=== PATIENT | male | born 1950 | race Caucasian/White ===

== ENCOUNTER 2017-05-30 12:05 | Observation (INO) ==
[2017-05-30] MEDS ORDERED: ASPIRIN 81 MG CHEWABLE TABLET PO ONE (12:15)
[2017-05-30] MEDS ORDERED: DiltiaZEM 25 MG/5 ML INJECTION IVP ONE ×2 (12:17→12:50)
[2017-05-30] MEDS: SALINE FLUSH 10ml SYRINGE IVF PRN ×3 (12:26→22:01)
--- NOTE | 2017-05-30 12:30 | Emergency Department Report ---
Chest Pain HPI - General Chief Complaint: Arrhythmia/Palpitations <SeptemberRich 05/30/17 14:02> Stated Complaint: Dizzy CP <SeptemberRich 05/30/17 14:02> Time Seen by Provider: 05/30/17 12:13 <SeptemberRich 05/30/17 14:02> Source: patient <Letty Escobar 05/30/17 12:31> Mode of arrival: EMS <Letty Escobar 05/30/17 12:31> Limitations: no limitations <Laisha Escobaran Jasson Morris 05/30/17 12:31> - History of Present Illness HPI narrative: Pt presents to ER per EMS after he became dizzy while cooking and fell. Pt got up to chair and became dizzy again while at rest and called 911. Pt denies a history of cardiac or neuro problems. As pt sits on cot he feels like the room is spinning. Pt denies nausea, vomiting, diaphoresis, SOA, or any sensation of palpitations. Pt has had normal po intake and adequate rest. <Letty Escobar 05/30/17 12:31> MD complaint: other <ShawnLettymanuel Morris 05/30/17 12:31> Occurred At: home <Letty Escobar 05/30/17 12:31> Onset (ago): minute(s) <Letty Escobar 05/30/17 12:31> Duration: intermittent <Letty Escobar 05/30/17 12:31> Pain radiation: none <Letty Escobar 05/30/17 12:31> Exacerbating factors: nothing <Letty Escobar 05/30/17 12:31> - Related Data Home Medications Medication Instructions Recorded Confirmed Albuterol HFA Inhaler [Ventolin 1 puff INH PRN 01/06/17 05/30/17 Hfa 90 mcg/actuation] Ibuprofen 2 cap PO Q4H PRN 01/06/17 05/30/17 Multivitamin [One Daily 1 each PO DAILY 01/06/17 05/30/17 Multivitamin] raNITIdine HCl [Zantac] 150 mg PO PRN 01/06/17 05/30/17 Fexofenadine [Mariza] 180 mg PO PRN 05/30/17 05/30/17 <05/30/17 14:02> Allergies Allergy/AdvReac Type Severity Reaction Status Date / Time No Known Allergies Allergy Verified 05/30/17 12:18 <05/30/17 14:02> Review of Systems All systems: reviewed and negative except as stated <Letty Escobar 12:31> Constitutional: Reports: as per HPI <Letty Escobar 05/30/17 12:31> Cardiovascular: Reports: as per HPI <Letty Escobar 05/30/17 12:31> Respiratory: Reports: as per HPI <Letty Escobar 05/30/17 12:31> Gastrointestinal: Reports: as per HPI <Letty Escobar 05/30/17 12:31> Neurological: Reports: as per HPI <Letty Escobar 05/30/17 12:31> [facility] Patient Stated Medical History Cerebrovascular Accident No Paralysis No Seizures No Syncope No Angina No Cardiac Arrhythmia No Congestive Heart Failure No Coronary Artery Disease No Heart Murmur No Hypertension No Hypotension No Myocardial Infarction No Rheumatic Fever No Valvular Heart Disease No Other Cardiology No Asthma Yes Bronchitis No Chronic Obstructive Pulmonary No Disease (COPD) Pneumonia No Pulmonary Edema No Pulmonary Embolism No Sleep Apnea No Tuberculosis No Other Respiratory No Diabetes Mellitus Type 1 No Diabetes Mellitus Type 2 No Cirrhosis No Gastroesophageal Reflux Yes Disease Gastrointestinal Bleeding No Hepatitis No Hiatal Hernia No Obstructive Bowel No Ulcer No Other GI No Osteoarthritis No Other Musculoskeletal No Anesthesia Reactions No Blood Transfusions No Chemotherapy No Malignant Hyperthermia No Other No Depression No Now No <05/30/17 14:02> - Social History Smoking status: Current every day smoker <Letty Escobar 05/30/17 12:31> Does patient use chewing tobacco?: No <Letty Escobar 05/30/17 12:31> Physical Exam - Limitations Limitations: no limitations <Letty Escobar 05/30/17 12:31> - General General appearance: alert, in no apparent distress <Letty Escobar 05/30 12:31> - Normal Exams: Head:: Normocephalic without trauma <Letty Escobar 05/30/17 12:31> Eyes:: Pupils are PERRLA w/ EOMI <Letty Escobar 05/30/17 12:31> Fundi:: Disks flat and sharp <Letty Escobar 05/30/17 12:31> Neck:: Full range of motion, without adenopathy <Letty Escobar 12:31> Chest/Respirations:: Clear all sepulveda, with good airflow, and symmetry bilaterally <Letty Escobar 05/30/17 12:31> Cardiovascular:: Regular rate and rhythm, without murmur or gallop, Pulses 2+ all extremities, capillary refill, <2 seconds all extremities <Letty Escobar 05/30/17 12:31> Abdomen:: Bowel sounds positive, soft, non-tender, non-distended <Letty Escobar 05/30/17 12:31> Musculoskeletal:: No tenderness, or deformity noted, good range of motion, all extremities <Letty Escobar 05/30/17 12:31> Integumentary:: No rashes <Letty Escobar 05/30/17 12:31> Neurological:: Patient is alert, and oriented, cranial nerves, motor/sensory/ cerebellar, exams w/o gross deficits, to observation <Letty Escobar 12:31> Psychiatric:: Patient exhibits, appropriate attention, emotion and affect < Letty Escobar 05/30/17 12:31> Course Vital Signs Temperature 98.5 F 05/30/17 12:07 Pulse Rate 154 H 05/30/17 12:07 Respiratory Rate 20 05/30/17 12:07 Blood Pressure 125/92 H 05/30/17 12:07 Pulse Oximetry 98 05/30/17 12:07 Temperature 98.5 F 05/30/17 12:07 Pulse Rate 128 H 05/30/17 13:00 Respiratory Rate 17 05/30/17 13:00 Blood Pressure 125/75 05/30/17 13:00 Pulse Oximetry 95 05/30/17 12:57 <Letty Escobar 05/30/17 13:22> Vital Signs Temperature 98.5 F 05/30/17 12:07 Pulse Rate 154 H 05/30/17 12:07 Respiratory Rate 20 05/30/17 12:07 Blood Pressure 125/92 H 05/30/17 12:07 Pulse Oximetry 98 05/30/17 12:07 Temperature 98.5 F 05/30/17 12:07 Pulse Rate 128 H 05/30/17 13:00 Respiratory Rate 17 05/30/17 13:00 Blood Pressure 125/75 05/30/17 13:00 Pulse Oximetry 95 05/30/17 12:57 <[facility] 13:12> Chest Pain - MDM Narrative Medical decision making narrative: Lab, X ray, and EKG reviewed. Pt given Cardizem bolus X2 with reduction of rate after first bolus and conversion to SR with second bolus. Dr Morales notified of pt status and history. Dr Ghosh would like pt to receive 150 mg of Amiodarone IV followed by 400 mg PO and for pt to be admitted to the floor. Findings and treatment plan discussed with pt who verbalizes understanding. Multiple questions answered. <Letty Escobar 05/30/17 13:28> - Differential Diagnosis Likely: stable angina, atypical chest pain (A fib, arrythmia) <Letty Escobar 05/30/17 12:31> - Lab Data Attestation: I reviewed the patient's lab results. <Letty Escobar 05/30 13:28> Result diagrams: 05/30/17 12:24 05/30/17 12:24 <[facility] 05/30/17 14:02> Lab Results 05/30/17 05/30/17 05/30/17 Range/Units 12:24 12:24 12:24 WBC 10.1 (4.5-11.0) T/MM3 RBC 4.72 (4.50-5.90) M/MM3 Hgb 15.1 (13.5-17.5) GM/DL Hct 45.7 (41-53) % MCV 96.8 (80-100) UM3 MCH 32.0 (26-34) UUG MCHC 33.0 (31-37) GM/DL RDW Std Deviation 46.4 (36.9-50.2) FL Plt Count 285 (130-400) T/MM3 MPV 8.5 L (9.4-12.4) UM3 Immature Gran % (Auto) 0.2 (0.0-0.5) % Neut % (Auto) 67.9 H (33-66) % Lymph % (Auto) 21.0 L (23-45) % [place] % (Auto) 7.3 (0-9.0) % Eos % (Auto) 3.4 (0-4) % Baso % (Auto) 0.2 (0-2) % Neut # (Auto) 6.9 (1.8-7.7) T/MM3 Lymph # (Auto) 2.1 (1-4.8) T/MM3 [place] # (Auto) 0.7 (0-0.8) T/MM3 Eos # (Auto) 0.3 (0-0.5) T/MM3 Baso # (Auto) 0.0 (0-0.2) T/MM3 Abs Immat Gran (auto) 0.02 (0.00-0.03) T/MM3 Turbidity < 20 (0-20) Sodium 143 (134-144) MEQ/L Potassium 3.8 (3.6-5) MEQ/L Chloride 107 (98-107) MEQ/L Carbon Dioxide 23 (22-30) MEQ/L Anion Gap 13 (5-15) MEQ/L BUN 15.0 (9-20) MG/DL Creatinine 0.7 L (0.8-1.5) MG/DL GFR Calculation 113 BUN/Creatinine Ratio 21 (6-26) RATIO Glucose 114 H (75-110) MG/DL Calculated Osmolality 277 (261-280) MOSM/KG Calcium 9.3 (8.4-10.2) MG/DL Magnesium 2.2 (1.6-2.3) MG/DL Icterus Index < 2 (0-7) Troponin I < 0.012 (0-0.12) ng/ml B-Natriuretic Peptide 266 H (0-175) pg/mL TSH 2.18 (0.47-4.68) MIU/L Specimen Hemolysis < 15 (0-25) <Letty Escobar 05/30/17 13:22> Lab Results 05/30/17 05/30/17 05/30/17 Range/Units 12:24 12:24 12:24 WBC 10.1 (4.5-11.0) T/MM3 RBC 4.72 (4.50-5.90) M/MM3 Hgb 15.1 (13.5-17.5) GM/DL Hct 45.7 (41-53) % MCV 96.8 (80-100) UM3 MCH 32.0 (26-34) UUG MCHC 33.0 (31-37) GM/DL RDW Std Deviation 46.4 (36.9-50.2) FL Plt Count 285 (130-400) T/MM3 MPV 8.5 L (9.4-12.4) UM3 Immature Gran % (Auto) 0.2 (0.0-0.5) % Neut % (Auto) 67.9 H (33-66) % Lymph % (Auto) 21.0 L (23-45) % [place] % (Auto) 7.3 (0-9.0) % Eos % (Auto) 3.4 (0-4) % Baso % (Auto) 0.2 (0-2) % Neut # (Auto) 6.9 (1.8-7.7) T/MM3 Lymph # (Auto) 2.1 (1-4.8) T/MM3 [place] # (Auto) 0.7 (0-0.8) T/MM3 Eos # (Auto) 0.3 (0-0.5) T/MM3 Baso # (Auto) 0.0 (0-0.2) T/MM3 Abs Immat Gran (auto) 0.02 (0.00-0.03) T/MM3 Turbidity < 20 (0-20) Sodium 143 (134-144) MEQ/L Potassium 3.8 (3.6-5) MEQ/L Chloride 107 (98-107) MEQ/L Carbon Dioxide 23 (22-30) MEQ/L Anion Gap 13 (5-15) MEQ/L BUN 15.0 (9-20) MG/DL Creatinine 0.7 L (0.8-1.5) MG/DL GFR Calculation 113 BUN/Creatinine Ratio 21 (6-26) RATIO Glucose 114 H (75-110) MG/DL Calculated Osmolality 277 (261-280) MOSM/KG Calcium 9.3 (8.4-10.2) MG/DL Magnesium 2.2 (1.6-2.3) MG/DL Icterus Index < 2 (0-7) Troponin I < 0.012 (0-0.12) ng/ml B-Natriuretic Peptide 266 H (0-175) pg/mL TSH 2.18 (0.47-4.68) MIU/L Specimen Hemolysis < 15 (0-25) <05/30/17 13:12> - Radiology Data Attestation: I reviewed the patient's radiology results. (read per Dr Chapman with no acute findings) <Letty Escobar 05/30/17 13:28> - EKG Data EKG #1 EKG attestation: Yes: I reviewed and interpreted this EKG. <Letty Escobar 05/30/17 13:28> Yes: I reviewed and interpreted this EKG. <05/30 13:12> Rate: tachycardia <05/30/17 13:12> Rhythm: A.Fib <05/30/17 13:12> [place]/QRS: left axis deviation, RBBB <05/30/17 13:12> EKG #2 EKG attestation: Yes: I reviewed and interpreted this EKG. < 14:02> EKG shows normal: sinus rhythm, ST-T waves <05/30/17 14:02> Rate: normal <05/30/17 14:02> [place]/QRS: left axis deviation, RBBB <05/30/17 14:02> Disposition Clinical Impression: Atrial fibrillation with RVR <05/30/17 14:02> Disposition: [address] [facility] Acute Care <05/30/17 14:02> Condition: Improved <05/30/17 14:02> Instructions: <05/30/17 14:02> Prescriptions: No Action raNITIdine HCl [Zantac] 150 mg PO PRN Albuterol HFA Inhaler [Ventolin Hfa 90 mcg/actuation] 1 puff INH PRN Multivitamin [One Daily Multivitamin] 1 each PO DAILY Ibuprofen 2 cap PO Q4H PRN PRN Reason: Pain Fexofenadine [Mariza] 180 mg PO PRN <[facility] 05/30/17 14:02> Referrals: Lv Silva DO [Physician] - <[facility] 05/30/17 14:02> Forms: <[facility]/30/[facility] 14:02> Time of Disposition: 13:27 <Letty Escobar 05/30/17 13:28> - Seen By: midlevel <Letty Escobar 05/30/17 13:28>
[2017-05-30] MEDS ORDERED: AMIODARONE 150mg/3ml INJECTION IV ONE (13:19)
[2017-05-30] MEDS ORDERED: AMIODARONE 200 MG TABLET PO ONE (13:28)
[2017-05-30] MEDS ORDERED: AMIODARONE 150 MG in NS 100 ML IV ONE (13:45)
[2017-05-30] MEDS ORDERED: SALINE FLUSH 10ml SYRINGE IV PRN (15:04)
[2017-05-30 15:12] VITALS: BMI 26.7
[2017-05-30 15:20] VITALS: RESP 16
[2017-05-30] MEDS ORDERED: IBUPROFEN 200 MG TABLET PO PRN (15:24)
[2017-05-30] MEDS ORDERED: FEXOFENADINE 180 MG TABLET PO PRN (15:30)
[2017-05-30] MEDS ORDERED: ALBUTEROL 2.5mg/3ml (0.083%) NEB AEROSOL PRN (15:30)
[2017-05-30] MEDS ORDERED: RANITIDINE 150 MG TABLET PO PRN (15:30)
--- NOTE | 2017-05-30 16:08 | Cardiology History & Physical ---
History of Present Illness Chief complaint: palpitations HPI: Huseyin is a 67 year old male who formerly saw Dr. Silva with no known medical history other than GERD who presented to ED per EMS after he became dizzy while cooking breakfast about 0900 and fell. He got up to chair and became dizzy again while at rest and called 911. He denies a history of cardiac or neuro problems. He reportedly had the sensation of like the room is spinning as well in the ED. He denies nausea, vomiting, diaphoresis, SOA, or any sensation of palpitations. He has had normal po intake and adequate rest. He is examined in his room on the Surgical unit. He reports a stress test many years ago that he thinks he passed and cannot recall why it was done. He denies ever having chest pain, pressure, tightness, palpitations, skipping or racing heart beat. He reports smoking 4-5 cigarettes a day and consuming 4-5 3.2% beer daily. Review of Systems - Constitutional Constitutional: Absent: chills, fatigue, fever(s) - EENMT Eyes: Absent: change in vision Balance: Absent: vertigo Mouth/Throat: Absent: sore throat - Cardiovascular Cardiovascular: Present: palpitations, syncope (near). Absent: chest pain, dyspnea on exertion, orthopnea, edema, heart murmur Rhythm: Absent: abnormal rhythm Vascular: Absent: pedal edema - Respiratory Respiratory: Absent: cough, dyspnea, dyspnea on exertion - Gastrointestinal Gastrointestinal: Absent: abdominal pain, diarrhea, nausea, vomiting - Genitourinary Genitourinary: Absent: dysuria - Integumentary/Breasts Integumentary: Absent: rash - Neurological Neurological: Absent: dizziness - Endocrine Endocrine: Present: palpitations PFSH Patient Stated Medical History Asthma Yes Gastroesophageal Reflux Yes Disease Surgical History: Appendectomy. Vasectomy. Umbilical hernia Family History: Father - , Parkinson's dosease Mother - brain aneurysm Brother - , liver cancer sister - no known health problems No significant FH of CAD, HTN, CHF, CVA - Social History Smoking status: Current every day smoker Packs per day: 0.25 Time spent discussing smoking cessation with patient: 3 to 10 minutes Substance use type: does not use Alcohol intake frequency: 3 or more drinks per day (3.2% beer) Housing: house Household members: none Current occupational status: employed Current residence: Apartment/Private Home Medications Home Medications Medication Instructions Recorded Confirmed Type Albuterol HFA Inhaler [Ventolin 1 puff INH PRN 01/06/17 05/30/17 History Hfa 90 mcg/actuation] Ibuprofen 2 cap PO Q4H PRN 01/06/17 05/30/17 History Multivitamin [One Daily 1 each PO DAILY 01/06/17 05/30/17 History Multivitamin] raNITIdine HCl [Zantac] 150 mg PO PRN 01/06/17 05/30/17 History Fexofenadine [Mariza] 180 mg PO PRN 05/30/17 05/30/17 History Allergies Allergy/AdvReac Type Severity Reaction Status Date / Time Penicillins Allergy Verified 05/30/17 14:07 Exam Vital signs: Temperature 98.9 F 05/30/17 15:19 Pulse Rate 75 05/30/17 15:28 Respiratory Rate 16 05/30/17 15:19 Blood Pressure 136/77 05/30/17 15:19 Pulse Oximetry 94 05/30/17 15:19 - Constitutional no acute distress, well nourished, cooperative - Routine HEENT Exam Head: Present: normocephalic ENT: Present: mucous membranes moist - Routine Neck Exam Absent: JVD, carotid bruit - Routine Chest/Breast/Axilla Exam Chest wall: Absent: tenderness - Routine Respiratory Exam Present: CTA bilaterally. Absent: rales, wheezes - Routine Cardiovascular Exam Present: irregular rhythm - Routine Abdominal Exam Present: soft, normoactive bowel sounds - Routine Extremities Exam Present: no edema - Routine Skin Exam Present: intact, dry, warm - Routine Neurological Exam Present: alert, oriented X3 - Routine Psychiatric Exam Present: normal affect, normal thought process Results 05/31/17 06:55 05/31/17 06:55 Intake and Output 05/30/17 05/30/17 05/30/17 06:59 14:59 22:59 Intake Total 0 / 0 Balance 0 / 0 Intake: Oral 0 / 0 Other: Weight 197 lb 5.019 oz Patient Weight 05/31/17 06:59 Weight 197 lb 5.019 oz Laboratory Results - last 24 hr 05/30/17 05/30/17 05/30/17 12:24 12:24 12:24 WBC 10.1 RBC 4.72 Hgb 15.1 Hct 45.7 MCV 96.8 MCH 32.0 MCHC 33.0 RDW Std Deviation 46.4 Plt Count 285 MPV 8.5 L Immature Gran % (Auto) 0.2 Neut % (Auto) 67.9 H Lymph % (Auto) 21.0 L [place] % (Auto) 7.3 Eos % (Auto) 3.4 Baso % (Auto) 0.2 Neut # (Auto) 6.9 Lymph # (Auto) 2.1 [place] # (Auto) 0.7 Eos # (Auto) 0.3 Baso # (Auto) 0.0 Abs Immat Gran (auto) 0.02 Turbidity < 20 Sodium 143 Potassium 3.8 Chloride 107 Carbon Dioxide 23 Anion Gap 13 BUN 15.0 Creatinine 0.7 L GFR Calculation 113 BUN/Creatinine Ratio 21 Glucose 114 H Calculated Osmolality 277 Calcium 9.3 Magnesium 2.2 Icterus Index < 2 Troponin I < 0.012 B-Natriuretic Peptide 266 H TSH 2.18 Specimen Hemolysis < 15 Hospital Course This is a general summary of the patient's hospital course. For more details refer to the complete medical record. Assessment and Plan - Attestation Attestation Narrative: 06/02/17 11:44 Recommendation After examining the patient I agree with the above assessment. I am involved in the formulation of the patient's plan of care. - Assessment and Plan (1) Atrial fibrillation with RVR Status: Acute Rate controlled with Cardizem IV - Cardizem 30mg po QID - Amiodarone bolus and 400mg po given for antiarrhythmic therapy - Mag and TSH WNL - Cardiac telemetry - Echocardiogram in the am - EKG tomorrow (2) GERD (gastroesophageal reflux disease) Status: Chronic May have home Zantac if needed
[2017-05-30] MEDS: ENOXAPARIN 100 MG/ML INJECTION SQ SCH (21:59)
--- NOTE | 2017-05-30 22:41 | XRay Report ---
INDICATION: new onset a fib PROCEDURE: CHEST 2-VIEWS UPRIGHT (PA & LAT) Encounter: Initial COMPARISON: April 11, 2015 FINDINGS: The lungs are clear without evidence of focal abnormal airspace opacity. There is no pleural effusion or pneumothorax. The heart size, mediastinal contours and pulmonary vascularity are within normal limits. There is no significant skeletal abnormality. IMPRESSION: No acute cardiopulmonary disease. .
[2017-05-31] MEDS ORDERED: MULTI-VITAMIN PLAIN TABLET PO SCH (09:00)
[2017-05-31] MEDS: ENOXAPARIN 100 MG/ML INJECTION SQ SCH (09:04)
[2017-05-31 09:43] VITALS: TEMP 98.2
[2017-05-31] MEDS ORDERED: AMIODARONE 200 MG TABLET PO SCH (13:22)
[2017-05-31 16:15] VITALS: PULSE 72
[2017-05-31 16:55] VITALS: BP 133/85; O2SAT 95
--- NOTE | 2017-05-31 17:11 | Discharge Summary ---
<Elisabeth Cleaning - Last Filed: 06/01/17 14:19> Discharge Information Date of admission: 05/30/17 14:43 Anticipated date of discharge: 05/31/17 Attending Physician: Kevan Ghosh MD - Discharge Diagnosis (1) Atrial fibrillation with RVR Status: Acute (2) GERD (gastroesophageal reflux disease) Status: Chronic Atrial fibrillation - Laboratory Labs: 05/31/17 06:55 05/31/17 06:55 Laboratory Results - last 24 hr 05/31/17 05/31/17 06:55 06:55 WBC 8.5 RBC 4.45 L Hgb 14.4 Hct 43.8 MCV 98.4 MCH 32.4 MCHC 32.9 RDW Std Deviation 47.9 Plt Count 293 MPV 8.9 L Immature Gran % (Auto) 0.2 Neut % (Auto) 58.2 Lymph % (Auto) 29.6 [place] % (Auto) 7.6 Eos % (Auto) 4.0 Baso % (Auto) 0.4 Neut # (Auto) 4.9 Lymph # (Auto) 2.5 [place] # (Auto) 0.6 Eos # (Auto) 0.3 Baso # (Auto) 0.0 Abs Immat Gran (auto) 0.02 Turbidity < 20 Sodium 142 Potassium 4.2 Chloride 106 Carbon Dioxide 27 Anion Gap 9 BUN 13.0 Creatinine 0.8 GFR Calculation 97 BUN/Creatinine Ratio 16 Glucose 108 Calculated Osmolality 274 Calcium 9.0 Magnesium 2.4 H Icterus Index < 2 Specimen Hemolysis < 15 History of Present Illness HPI: Huseyin is a 67 year old male who formerly saw Dr. Silva with no known medical history other than GERD who presented to ED per EMS after he became dizzy while cooking breakfast about 0900 and fell. He got up to chair and became dizzy again while at rest and called 911. He denies a history of cardiac or neuro problems. He reportedly had the sensation of like the room is spinning as well in the ED. He denies nausea, vomiting, diaphoresis, SOA, or any sensation of palpitations. He has had normal po intake and adequate rest. He is examined in his room on the Surgical unit. He reports a stress test many years ago that he thinks he passed and cannot recall why it was done. He denies ever having chest pain, pressure, tightness, palpitations, skipping or racing heart beat. He reports smoking 4-5 cigarettes a day and consuming 4-5 3.2% beer daily. Hospital Course This is a general summary of the patient's hospital course. For more details refer to the complete medical record. Exam Vital signs: Temperature 98.2 F 05/31/17 16:54 Pulse Rate 72 05/31/17 16:54 Respiratory Rate 16 05/31/17 16:54 Blood Pressure 133/85 05/31/17 16:54 Pulse Oximetry 95 05/31/17 16:54 Results 05/31/17 06:55 05/31/17 06:55 CBC 05/31/17 Range/Units 06:55 WBC 8.5 (4.5-11.0) T/MM3 RBC 4.45 L (4.50-5.90) M/MM3 Hgb 14.4 (13.5-17.5) GM/DL Hct 43.8 (41-53) % Plt Count 293 (130-400) T/MM3 Neut # (Auto) 4.9 (1.8-7.7) T/MM3 Lymph # (Auto) 2.5 (1-4.8) T/MM3 [place] # (Auto) 0.6 (0-0.8) T/MM3 Eos # (Auto) 0.3 (0-0.5) T/MM3 Baso # (Auto) 0.0 (0-0.2) T/MM3 Comprehensive Metabolic Panel 05/31/17 Range/Units 06:55 Sodium 142 (134-144) MEQ/L Potassium 4.2 (3.6-5) MEQ/L Chloride 106 (98-107) MEQ/L Carbon Dioxide 27 (22-30) MEQ/L BUN 13.0 (9-20) MG/DL Creatinine 0.8 (0.8-1.5) MG/DL Glucose 108 (75-110) MG/DL Calcium 9.0 (8.4-10.2) MG/DL Intake and Output 05/31/17 05/31/17 05/31/17 06:59 14:59 22:59 Intake Total 200 / 200 190 / 190 Balance 200 / 200 190 / 190 Intake: Oral 200 / 200 190 / 190 Other: # Voids 2 Weight 194 lb 14.218 oz Patient Weight 06/01/17 06:59 Weight 194 lb 14.218 oz - Imaging and Cardiology Imaging & Cardiology Narrative: Date of Exam: 05/30/17 Ordering Provider: Letty Escobar APRN Type of Exam(s): XR chest 2V Reason for Exam(s): new onset a fib INDICATION: new onset a fib PROCEDURE: CHEST 2-VIEWS UPRIGHT (PA & LAT) Encounter: Initial COMPARISON: April 11, 2015 FINDINGS: The lungs are clear without evidence of focal abnormal airspace opacity. There is no pleural effusion or pneumothorax. The heart size, mediastinal contours and pulmonary vascularity are within normal limits. There is no significant skeletal abnormality. IMPRESSION: No acute cardiopulmonary disease. 05/31/17 17:06 Discharge Plan - Med Rec/Dispo Referrals/Follow Up: Kevan Ghosh MD [Physician] - 2 We[facility] Instructions: A-fib (Atrial Fibrillation) (DC) Prescriptions: New Amiodarone [Pacerone] 200 mg PO DAILY #30 tab Amiodarone [Pacerone] 400 mg PO BID #13 tab Continue raNITIdine HCl [Zantac] 150 mg PO PRN Albuterol HFA Inhaler [Ventolin Hfa 90 mcg/actuation] 1 puff INH PRN Multivitamin [One Daily Multivitamin] 1 each PO DAILY Ibuprofen 2 cap PO Q4H PRN PRN Reason: Pain Fexofenadine [Mariza] 180 mg PO PRN - Disposition 01 Discharged Home, Self-Care - Dismissal Complete Discharge Instructions are:: Complete <Kevan Ghosh - Last Filed: 06/02/17 11:46> Discharge Information Date of admission: 05/30/17 14:43 Attending Physician: Kevan Ghosh MD - Discharge Diagnosis (1) Atrial fibrillation with RVR Status: Acute (2) GERD (gastroesophageal reflux disease) Status: Chronic - Laboratory Labs: 05/31/17 06:55 05/31/17 06:55 Hospital Course This is a general summary of the patient's hospital course. For more details refer to the complete medical record. Exam Vital signs: Temperature 98.2 F 05/31/17 16:54 Pulse Rate 72 05/31/17 16:54 Respiratory Rate 16 05/31/17 16:54 Blood Pressure 133/85 05/31/17 16:54 Pulse Oximetry 95 05/31/17 16:54 Results 05/31/17 06:55 05/31/17 06:55 Attestation Narriative - Attestation Attestation Narrative: 06/02/17 11:45 Recommendation After examining the patient I agree with the above assessment. I am involved in the formulation of the patient's plan of care.
--- NOTE | 2017-05-31 17:15 | Work/School Release ---
Work/School Release - Date Date: 05/31/17 - Work Release Remain off work/school for:: 24 hours Excused for:: recent illness May return to work on:: 06/02/16 Restrictions:: none May resume normal activity on:: 06/02/16
--- NOTE | 2017-06-01 11:03 | Echocardiogram ---
DATE OF PROCEDURE May 31, 2017 This is a two-dimensional echo with spectral Doppler, color-flow and M-mode. It was obtained in a patient with atrial fibrillation. Left atrial dimension is normal. Left ventricular end-diastolic dimension is normal. Left ventricular wall thickness is normal. LV systolic function is normal with ejection fraction of about 55%. Right atrium is normal. Right ventricle is normal. Aortic root dimension is normal. Mitral valve is morphologically normal with mild mitral regurgitation. Aortic valve shows fibrocalcific changes with no stenosis or insufficiency. Tricuspid valve shows mild tricuspid regurgitation with normal estimated pulmonary artery systolic pressure of 20. Pulmonary valve shows no pulmonary insufficiency. There is no pericardial effusion. IMPRESSION 1. Normal LV systolic function with ejection fraction of about 55%. 2. Mild mitral regurgitation. 3. Mild tricuspid regurgitation with normal estimated pulmonary artery systolic pressure of 20. 4. Aortic sclerosis. MTDD
== END 2017-05-31 17:20 | disposition home or self-care (01) ==
LOC: ED 12:05 → SRG 12:05
PROVIDERS: ADMIT Internal Medicine Cardiovascular Disease; ATTEND Internal Medicine Cardiovascular Disease